=== PATIENT | male | born 1935 | race Caucasian/White ===

== ENCOUNTER → 2021-12-17 12:12 | Outpatient (CLI) | payer MEDICARE, SELFPAY ==
--- NOTE | ~2021-12-17 | XR_ITS ---
EXAMINATION: XR lumbar spine 2-3V DATE: 12/17/2021 12:52 INDICATION: Low back pain. TECHNIQUE: 3 views of lumbar spine were obtained. COMPARISON: CT 05/13/2012 FINDINGS: There is 25 degrees dextroscoliosis of thoracolumbar spine. There is 3 mm retrolisthesis of L1 on L2 and L2 on L3. Vertebral heights are normal. There is severely decreased disc height at T11- T12 through L5-S1 with endplate remodeling. There is multilevel severe facet joint osteoarthritis lisa aterally. There is an intrathecal catheter with tip at T11. There is a fusiform infrarenal aortic ane urysm measuring 5 cm. 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 There is severe right hip osteoarthriti s. IMPRESSION: 1. 5 cm fusiform infrarenal aortic aneurysm. Abdomen CTA is recommended. 2. Severe lumbar spondylosis. 3. Thoracolumbar dextroscoliosis. Reviewed, dictated and finalized at location A. N DRILLER
--- NOTE | ~2021-12-17 | XR_ITS ---
EXAMINATION: XR hip RT min 2V DATE: 12/17/2021 12:52 INDICATION: Right hip pain TECHNIQUE: Anteroposterior and frog-leg lateral views of the right hip were obtained. COMPARISON: None. FINDINGS: Severe joint space narrowing throughout the right hip with moderate size marginal osteophytes about t he femoral head consistent with severe osteoarthritis. Appears be some remodeling of the femoral head with subtle flattening at the superomedial aspect of the femoral head and prominent subarticular scl erosis. Partially visualized left total hip arthroplasty. Mild osteoarthritis at the bilateral garcia clavicular joints. Severe lower lumbar spondylosis. Curvilinear calcification projecting over the L4 vertebral body consistent with a fusiform aneurysm of the distalmost aorta measuring 5.[address] Partially visualized intrathecal pain pump projects over the right lower quadrant with catheter tubing extending towards the nonvisualized upper lumbar spine. IMPRESSION: 1. And advanced right hip osteoarthritis with early remodeling of the femoral head. 2. Fusiform distal aortic aneurysm measuring up to 5.6 cm maximal diameter. Reviewed, dictated and finalized at location A. OYEE RELATIONS DIRECTOR IMPRESSION: 1. And advanced right hip osteoarthritis with early remodeling of the femoral h ead. 2. Fusiform distal aortic aneurysm measuring up to 5.6 cm maximal diameter.
== END ==
PROVIDERS: Visit Provider Nurse Practitioner Family
DX: M47.896 Other spondylosis, lumbar region (principal); I71.4 Abdominal aortic aneurysm, without rupture; M16.11 Unilateral primary osteoarthritis, right hip
CPT/HCPCS: 72100; 73502

== ENCOUNTER → 2022-08-19 12:09 | Outpatient (CLI) | payer MEDICARE, SELFPAY ==
--- NOTE | ~2022-08-19 | MR_ITS ---
EXAMINATION: MR shoulder RT wo con DATE: 08/19/2022 13:02 INDICATION: Right shoulder pain. TECHNIQUE: Magnetic resonance imaging (MRI) of the right shoulder was performed without intravenous c ontrast. Sequences included axial PD-weighted FS FSE, coronal oblique PD-weighted FS FSE and T2-weigh ky FS FSE, and sagittal oblique T2-weighted FS FSE and T1-weighted FSE. COMPARISON: None. FINDINGS: Coracoacromial arch: The acromion undersurface is flat in morphology (type I). There is severe acromioclavicular joint ost eoarthritis. There is moderate subacromial/subdeltoid bursitis. Rotator cuff: There is an articular sided partial-thickness tear of supraspinatus and infraspinatus tendons measuri ng 2.8 cm anterior to posterior by 2.5 cm proximal to distal by up to 60% tendon thickness. Teres min or tendon is normal. There is an articular sided partial-thickness tear of subscapularis tendon. Ther e is mild fatty atrophy of the rotator cuff muscle bellies. There is increased T2-weighted signal int ensity involving the supraspinatus, infraspinatus, and subscapularis muscle bellies. Biceps tendon and glenoid labrum: Biceps tendon is in bicipital groove. There is a longitudinal split tear of proximal biceps tendon. T here is widespread tearing of the glenoid labrum. Fluid: There is a large glenohumeral joint effusion. Bones/cartilage: There is extensive full-thickness cartilage loss of glenoid and humeral head with bone volume loss an d osteophytes. IMPRESSION: 1. Advanced glenohumeral joint osteoarthritis. 2. Articular-sided, partial-thickness tears involving supraspinatus, infraspinatus, and subscapularis tendons. Edema in these muscle bellies may be mild strains or subacute denervation. 3. Severe acromioclavicular joint osteoarthritis. 4. Large glenohumeral joint effusion. 5. Moderate subacromial/subdeltoid bursitis. 6. Longitudinal split tear of biceps tendon. Reviewed, dictated and finalized at location A. IMPRESSION: 1. Advanced glenohumeral joint osteoarthritis. 2. Articular-sided, partial-thickness tears involving supraspinatus, infraspina tus, and subscapularis tendons. Edema in these muscle bellies may be mild strai ns or subacute denervation. 3. Severe acromioclavicular joint osteoarthritis. 4. Large glenohumeral joint effusion. 5. Moderate subacromial/subdeltoid bursitis. 6. Longitudinal split tear of biceps tendon.
== END ==
DX: Z01.818 Encounter for other preprocedural examination (principal); S46.211A Strain of muscle, fascia and tendon of other parts of biceps, right arm, initial encounter; M19.011 Primary osteoarthritis, right shoulder; M75.101 Unspecified rotator cuff tear or rupture of right shoulder, not specified as traumatic; M75.51 Bursitis of right shoulder; M25.411 Effusion, right shoulder
CPT/HCPCS: 73221